=== PATIENT | male | born 1990 | race Caucasian/White ===

== ENCOUNTER 2016-10-08 19:48 | Emergency (ER) | payer SELFPAY ==
[2016-10-08 19:55] VITALS: BP 127/38; PULSE 78; TEMP 97.9; BMI 31.5
--- NOTE | 2016-10-08 19:59 | PDOC ---
History of Present Illness - General Chief Complaint: Injury Stated Complaint: FINGER SWOLLEN Time Seen by Provider: 10/08/16 19:57 History Source: Patient Exam Limitations: No Limitations - History of Present Illness Initial Comments: 10/08/16 20:40 2 chewing chewing to fingernails, had an onset of swelling, tenderness and fluctuance to left third digit 2 days ago. No fevers/ or streaking 10/09/16 12:26 Severity: reports: mild, moderate Pain Location: denies: none Modifying Factors: improves with: None Loss of Consciousness: no loss of consciousness Associated Symptoms (Fall): denies symptoms Past History - Travel Traveled outside of the country in the last 30 days: No Close contact w/someone who was outside of country & ill: No - Past Medical History Allergies/Adverse Reactions: Allergies Allergy/AdvReac Type Severity Reaction Status Date / Time No Known Allergies Allergy Verified 10/08/16 19:55 Home Medications: Ambulatory Orders NK [No Known Home Medication] 10/08/16 - Psycho/Social/Smoking Cessation Hx Suicidal Ideation: No Smoking Status: No Smoking History: Never smoked Have you smoked in the past 12 months: No Number of Cigarettes Smoked Daily: 0 Information on smoking cessation initiated: No Hx Alcohol Use: No Drug/Substance Use Hx: No Review of Systems - Review of Systems Able to Perform ROS?: Yes Is the patient limited Vietnamese proficient: Yes Constitutional: Yes: Symptoms Reported, See HPI. No: Fever, Malaise HEENTM: No: Symptoms Reported Respiratory: No: Symptoms reported : No: Symptoms Reported Musculoskeletal: No: Symptoms Reported Integumentary: Yes: Symptoms Reported, See HPI Neurological: Yes: Symptoms reported All Other Systems: Reviewed and Negative *Physical Exam - Vital Signs Last Vital Signs Temp Pulse Resp BP Pulse Ox 97.9 F 78 18 127/38 99 10/08/16 19:49 10/08/16 19:49 10/08/16 19:49 10/08/16 19:49 10/08/16 19:49 - Physical Exam General Appearance: Yes: Nourished, Appropriately Dressed, Apparent Distress, Mild Distress HEENT: positive: NAHOMY, Normal ENT Inspection, TMs Normal, Pharynx Normal Neck: positive: Supple. negative: Tender Respiratory/Chest: positive: Lungs Clear Integumentary: positive: Swelling, Other (fluctuant yellow lesion to ulnar aspect of left 3rd epinycheum, fulll range of motion to finger, no tenderness to PIP or DIP joint, ) Neurologic: positive: completions engineer II-XII NML intact, Fully Oriented, Alert, Normal Mood/ Affect Procedures - Incision and Drainage I&D Site: Left: Paronychia (3rd digit) Betadine cleansed: Yes ED Treatment Course - RADIOLOGY Radiology Studies Ordered: Category Date Time Status HEAD CT WITHOUT CONTRAST [CT] Stat CT Scan 10/08/16 19:58 Stop Req Progress Note - Progress Note Progress Note: Incise and Drain of 3rd digit paronychia, started on Bactrim *DC/Admit/Observation/Transfer Diagnosis at time of Disposition: Paronychia of finger of left hand - Discharge Dispostion Disposition: HOME Condition at time of disposition: Stable Admit: No - Patient Instructions Printed Discharge Instructions: DI for Paronychia Additional Instructions: Rest, keep hand elevated Avoid heavy lifting or strenuous activity until healed Soak finger every 2-3 hours while awake for the next 2-3 days to keep continue to allow drainage Reapply bacitracin ointment and bulky dressing after each soaking May use ibuprofen or Tylenol for pain relief Followup with private physician in one to 2 days for wound check as needed Return immediately to emergency department or private doctor's for worsening redness, swelling, pain, streaking Take all of antibiotics until completed - Post Discharge Activity Work/School Note: Back to Work
== END 2016-10-08 21:06 | disposition home or self-care (01) ==
LOC: JERFT 19:48
PROC: 0H9GXZZ Drainage of Left Hand Skin, External Approach (ICD-10-PCS; principal; 2016-10-08)
DX: L03.012 Cellulitis of left finger (principal)
CPT/HCPCS: 99281-25

== ENCOUNTER 2022-11-24 16:01 | Emergency (ER) | payer OTHER ==
[2022-11-24 16:22] VITALS: BP 136/91; PULSE 92; RESP 16; TEMP 99.5; BMI 38.4
[2022-11-24] MEDS ORDERED: DIPHTH,PERTUSS(ACELL),TET 0.5 ML DISP.SYRIN IM ONE ×2 (16:37→16:38)
== END 2022-11-24 17:02 | disposition home or self-care (01) ==
LOC: FER 16:01
PROC: 3E0234Z Introduction of Serum, Toxoid and Vaccine into Muscle, Percutaneous Approach (ICD-10-PCS; principal; 2022-11-24)
DX: S50.812A Abrasion of left forearm, initial encounter (principal); S40.212A Abrasion of left shoulder, initial encounter; S80.212A Abrasion, left knee, initial encounter; V89.2XXA Person injured in unspecified motor-vehicle accident, traffic, initial encounter
CPT/HCPCS: 90715; 99283-25